=== PATIENT | female | born 1950 | race Caucasian/White ===

== ENCOUNTER 2017-10-26 05:40 | Inpatient (IN) | payer OTHER ==
[2017-10-26] VITALS (21 sets, daily range): BP systolic 112–158; BP diastolic 56–85; PULSE 74–89; RESP 14–30; Ht 162.6 cm; Wt 45.0 kg
[~2017-10-26] VITALS: Ht 162.6 cm; Wt 45.0 kg
[2017-10-26] MEDS ORDERED: TRANEXAMIC ACID 1,000 MG in SOD CHLORIDE 0.9% 100 ML IV ONE ×2 (06:00→10:00)
[2017-10-26] MEDS ORDERED: CEFAZOLIN 2 GM/50 ML (PMX) 50 ML IVPB ONE (06:00)
--- NOTE | 2017-10-26 06:43 | HPN ---
Date/Time of Note Date/Time of Note DATE: 10/26/17 TIME: 06:42 Interval H&P Admission Note Pt. seen H&P reviewed: No system changes LISA FAGAN PA-C Oct 26, 2017 06:42
[2017-10-26] MEDS ORDERED: FOLI-49 PO (06:59)
[2017-10-26] MEDS ORDERED: NAPR500T8 PO (06:59)
[2017-10-26] MEDS ORDERED: LEFL20TA18 PO (06:59)
[2017-10-26] MEDS ORDERED: LOSA50TA6 PO (06:59)
[2017-10-26] MEDS ORDERED: PRED10TA PO (06:59)
[2017-10-26] MEDS ORDERED: HYDR200T39 PO (06:59)
[2017-10-26] MEDS ORDERED: OMEP20CA16 PO (07:00)
[2017-10-26] MEDS ORDERED: CALC-143 PO (07:00)
[2017-10-26] MEDS ORDERED: KETOROLAC 30 MG INJ ONE (07:09)
[2017-10-26] MEDS ORDERED: BUPIVACAINE 0.5%/EPI (SDV) 30 ML INJ ONE (07:09)
[2017-10-26] MEDS ORDERED: POLYMYXIN/BACITRACIN 1L IRRIG ONE (07:09)
[2017-10-26] MEDS ORDERED: ROCURONIUM 50 MG INJ ONE (07:17)
[2017-10-26] MEDS ORDERED: NEOSTIGMINE 3 MG/3 ML SYRINGE ONE (07:17)
[2017-10-26] MEDS ORDERED: PROPOFOL 0 ML ONE (07:17)
[2017-10-26] MEDS ORDERED: CEFAZOLIN 1 GM INJ ONE (07:17)
[2017-10-26] MEDS ORDERED: GLYCOPYRROLATE 0.4 MG INJ ONE (07:17)
[2017-10-26] MEDS ORDERED: FENTAnyl 50 MCG/ML VIAL ONE (07:19)
[2017-10-26] MEDS ORDERED: DEXAMETHASONE 4 MG/ML 1 ML INJ ONE (07:19)
[2017-10-26] MEDS ORDERED: MIDAZOLAM 1 MG/ML 2 ML INJ ONE (07:19)
[2017-10-26] MEDS ORDERED: ONDANSETRON 4 MG INJ ONE (07:19)
[2017-10-26] MEDS ORDERED: ROPIVACAINE 0.5 % 30 ML VIAL ONE (07:20)
[2017-10-26] MEDS ORDERED: PROPOFOL 100 ML ONE (07:20)
[2017-10-26] MEDS ORDERED: CLONIDINE INJ SCH ×5 (07:30)
[2017-10-26] MEDS ORDERED: KETOROLAC INJ SCH ×5 (07:30)
[2017-10-26] MEDS ORDERED: SOD CHLORIDE 0.9% INJ SCH ×5 (07:30)
[2017-10-26] MEDS ORDERED: ROPIVACAINE 0.2% INJ SCH ×5 (07:30)
[2017-10-26] MEDS ORDERED: [UNRECOGNIZED DRUG - OTHER] INJ SCH ×5 (07:30)
[2017-10-26] MEDS ORDERED: POLYMYXIN/BACITRACIN 1L IRRIG IRR ONE (08:22)
[2017-10-26] MEDS ORDERED: LABETALOL HCL 20MG INJ IV PRN (09:30)
[2017-10-26] MEDS ORDERED: MIDAZOLAM 1 MG/ML 2 ML INJ IV PRN (09:30)
[2017-10-26] MEDS ORDERED: IPRATROPIUM (NEB) 0.5 MG/2.5 ML AMP HHN PRN (09:30)
[2017-10-26] MEDS ORDERED: FENTAnyl 50 MCG/ML VIAL IV PRN ×3 (09:30)
[2017-10-26] MEDS ORDERED: DIPHENHYDRAMINE 50 MG INJ IV PRN ×2 (09:30→10:30)
[2017-10-26] MEDS ORDERED: EPHEDrine SULFATE 50 MG/5 ML SYG IV PRN (09:30)
[2017-10-26] MEDS ORDERED: ONDANSETRON 4 MG INJ IV PRN ×2 (09:30→10:30)
[2017-10-26] MEDS ORDERED: HYDROmorphONE (0.2 MG/ML) 10ML SYG IV PRN ×3 (09:30)
[2017-10-26] MEDS ORDERED: OXYCODONE/ACETAMINOPHEN (5/325) TAB PO PRN ×2 (09:30)
[2017-10-26] MEDS ORDERED: hydrALAzine 20 MG INJ IV PRN ×2 (09:30→15:30)
[2017-10-26] MEDS ORDERED: MEPERIDINE 25 MG INJ IV PRN (09:30)
[2017-10-26] MEDS ORDERED: ALBUTEROL 0.083% (NEB) 2.5 MG/3 ML AMP HHN PRN (09:30)
[2017-10-26] MEDS ORDERED: TRIMETHOBENZAMIDE 100 MG/ML VIAL IM PRN ×2 (09:30→10:30)
--- NOTE | 2017-10-26 09:49 | SIPON ---
Date/Time of Note Date/Time of Note DATE: 10/26/17 TIME: 09:47 Operative Report Preoperative Diagnosis Right shoulder rotator cuff tear arthropathy Postoperative Diagnosis Same Operation/Procedure Performed Right total shoulder replacement using the reverse prosthesis Surgeon see signature line custody assistant Raheem Hollingsworth Second assist: LISA FAGAN PA-C Anesthesia: general Estimated blood loss: 150 - 200 ml's Transfusion Required none Specimen Bone Grafts/Implants Size 10 humeral stem, 38 mm glenosphere, 3 mm poly Complications none GLADIS STEINER Oct 26, 2017 09:49
--- NOTE | 2017-10-26 09:54 | OPR ---
Date/Time of Note Date/Time of Note DATE: 10/26/17 TIME: 09:49 Operative Report Procedure Date: Oct 26, 2017 Preoperative Diagnosis Right shoulder rotator cuff tear arthropathy Postoperative Diagnosis Same Operation/Procedure Performed Right total shoulder replacement using the reverse prosthesis Surgeon see signature line Able Seaman Dr. Raheem Hollingsworth Second Able Seaman: LISA FAGAN PA-C Anesthesia Type: general Estimated Blood Loss: 150 - 200 ml's Transfusion none Specimen Bone Grafts/Implants depuy size 10 stem and 38 mm glenoid Tubes/Drains None Complications none Pt Condition Post Procedure: stable Disposition: PACU Indications The patient is a 66-year-old female with right shoulder rotator cuff tear that is irrepairable Procedure Description Patient was placed on the operating room table in a beachchair position. Right shoulder was prepped and draped in usual manner. An anterior approach to the right shoulder was made. The deltopectoral interval was developed in a blunt fashion. The cephalic vein was protected and retracted medially with the pectoralis major. A biceps tenodesis was done using #2 Ethibond suture. The shoulder joint was opened 1 cm medial to the biceps tendon. There was extensive tearing of the rotator cuff involving the subscapularis, supraspinatus and infraspinatus. There was severe atrophy of the rotator cuff muscles. There was complete loss of cartilage in the shoulder. The shoulder was prepared for a reverse prosthesis from the [place] shoulder system. The shoulder was prepared for a size 10 humeral stem which was placed in 20-25 of retroversion. The glenoid was prepared by placing the glenoid baseplate in the inferior portion of the glenoid and then placing a 38 mm glenosphere. A trial reduction was done using the size 10 stem with a 3 mm polyethylene. This resulted in a stable shoulder with good range of motion. The shoulder was then thoroughly irrigated. Trials were removed. Final implants were placed including a size 10 stem and 38 mm +3 polyethylene. This resulted in a stable shoulder with good range of motion. The shoulder was injected with Marcaine and Toradol and closed in layers using #1 Vicryl for arthrotomy and fascia 2-0 Vicryl for subcutaneous tissue and 3-0 Monocryl for the skin. Patient was transferred to the recovery room in stable condition. GLADIS STEINER Oct 26, 2017 09:54
[2017-10-26] MEDS ORDERED: morphine 2 MG INJ IV PRN (10:30)
[2017-10-26] MEDS ORDERED: MAGNESIUM HYDROXIDE 30ML CUP PO PRN (10:30)
[2017-10-26] MEDS ORDERED: ZOLPIDEM 5 MG TAB PO PRN (10:30)
[2017-10-26] MEDS ORDERED: NA PHOSPHATE/BIPHOS 133 ML ENEMA PR PRN (10:30)
[2017-10-26] MEDS ORDERED: LOPERAMIDE 2 MG CAP PO PRN (10:30)
[2017-10-26] MEDS ORDERED: BISACODYL 10 MG SUPP PR PRN (10:30)
[2017-10-26] MEDS ORDERED: NACL 0.9% 3 ML SYG IV SCH (10:30)
[2017-10-26] MEDS ORDERED: HYDROCODONE/APAP (5/325) TAB PO PRN ×2 (10:30)
[2017-10-26] MEDS ORDERED: ASPIRIN (EC) 325 MG TAB PO ONE (10:30)
[2017-10-26] MEDS ORDERED: BETHANECHOL 25 MG TAB PO PRN (10:30)
--- NOTE | 2017-10-26 10:43 | PDOCDIS ---
Discharge Instructions DIAGNOSIS Discharge Diagnosis Status post right reverse total shoulder arthroplasty. CONDITION Patient Condition: Good HOME CARE INSTRUCTIONS: Diet Instructions: Regular ACTIVITY: Activity Restrictions: Slowly Increase Activity Rest between Activity Avoid heavy lifting No Sexual Activity Do not Drive Do not operate Machinery Do not operate Power Tool Avoid Heavy Housework No Weight Bearing (Remain in sling. Pendulum exercises okay.) Bathing Restrictions: Shower (Keep Mepilex dressing on while showering.) FOLLOW UP/APPOINTMENTS Follow-up Plan Follow-up for postoperative visit provided to you at your preoperative exam date. LISA FAGAN PA-C Oct 26, 2017 10:43
[2017-10-26 11:15] LABS: BASOPHILS % 0.6 % (0.0-2.0); EOSINOPHILS # 0.2 10^3/ul (0.0-0.5); EOSINOPHILS % 2.4 % (0.0-7.0); HEMATOCRIT 29.3 % (37.0-47.0); LYMPHOCYTES # 1.7 10^3/ul (0.8-2.9); LYMPHOCYTES % 26.9 % (15.0-51.0); MEAN CORPUSCULAR HEMOGLOBIN 27.2 pg (29.0-33.0); MEAN CORPUSCULAR HGB CONC 31.1 g/dl (32.0-37.0); MEAN CORPUSCULAR VOLUME 87.5 fl (82.0-101.0); MEAN PLATELET VOLUME 9.1 fl (7.4-10.4); MONOCYTE # 0.4 10^3/ul (0.3-0.9); MONOCYTES % 6.8 % (0.0-11.0); NEUTROPHILS % 62.2 % (39.0-77.0); PLATELET COUNT 272 10^3/UL (140-415); RED BLOOD COUNT 3.35 10^6/ul (4.20-5.40); RED CELL DISTRIBUTION WIDTH 18.1 % (11.5-14.5); WHITE BLOOD COUNT 6.4 10^3/ul (4.8-10.8)
[2017-10-26 11:17] LABS: HOLD TRANSMISSIONS 1
[2017-10-26 11:21] LABS: HEMOGLOBIN 9.1 g/dl (12.0-16.0)
--- NOTE | 2017-10-26 15:24 | CONS ---
Date/Time of Note Date/Time of Note DATE: 10/26/17 TIME: 15:19 Assessment/Plan Assessment/Plan Chief Complaint/Hosp Course Impression and plan 1. Right shoulder arthritis with rotator cuff tear arthropathy. Patient is status post right total shoulder replacement with reverse prosthesis. Continue with analgesics. Physical therapy per surgeon. 2. Essential hypertension. Will continue antihypertensives and adjust as needed. 3. History of arthritis. Continue with analgesics 4. Anemia. Will follow up on iron panel. Remained stable at present. consultation process time is greater than 40 minutes Discussed plan of care with Dr. Baker Problems: Consultation Date/Type/Reason Admit Date/Time Oct 26, 2017 at 05:40 Reason for Consultation Medical management Hx of Present Illness This is 66-year-old female with past medical history of hypertension, arthritis , who was brought to [facility] for elective surgery for right total shoulder replacement secondary to arthritis. Patient did have history of right shoulder rotator cuff tear and arthropathy. As such was brought to bypass during hospital for surgical intervention. She did tolerated well. Overall vital signs do appear stable however is noted with some hypertension. She is anemic microcytic hypochromic. Basic metabolic panel is pending at this time. She remains afebrile at present. Denies any pain. We will evaluate her for the aformentiond issues. Past Medical History Medical/surgical history 1. Bilateral hip and knee replacement 2. Arthritis 3. Hypertension Social History Alcohol Use: none Smoking Status: Never smoker Drug Use: none Exam/Review of Systems Vital Signs Vitals Vital Signs Date Time Temp Pulse Resp B/P Pulse Ox O2 Delivery O2 Flow Rate FiO2 10/26/17 13:15 75 17 149/77 98 Room Air 10/26/17 12:21 98.1 Exam Constitutional: alert, oriented Psych: nl mood/affect Head: normocephalic Eyes: nl conjunctiva Neck: supple Respiratory: clear to auscultation, normal air movement Cardiovascular: nl pulses, regular rate and rhythm Gastrointestinal: soft Musculoskeletal: other (Status post surgical intervention on right shoulder with area clean dry and intact) Neurological: RETAIL CASHIER II-XII intact, nl mental status, nl speech Skin: nl turgor Results Result Diagram: 10/26/17 1058 Results 24 hrs Laboratory Tests Test 10/26/17 10:58 White Blood Count 6.4 Red Blood Count 3.35 L Hemoglobin 9.1 L Hematocrit 29.3 L Mean Corpuscular Volume 87.5 Mean Corpuscular Hemoglobin 27.2 L Mean Corpuscular Hemoglobin Concent 31.1 L Red Cell Distribution Width 18.1 H Platelet Count 272 Mean Platelet Volume 9.1 Neutrophils % 62.2 Lymphocytes % 26.9 Monocytes % 6.8 Eosinophils % 2.4 Basophils % 0.6 Nucleated Red Blood Cells % 0.0 Neutrophils # 4.0 Lymphocytes # 1.7 Monocytes # 0.4 Eosinophils # 0.2 Basophils # 0.0 Nucleated Red Blood Cells # 0.0 CBC Results Faxed/Phoned 1 *H Medications Medications Current Medications Cefazolin Sodium (Ancef 1 Gm/50 ml (Pmx)) 50 ml @ 100 mls/hr Q8H IVPB ; Start 10/26/17 at 10:30; Stop 10/27/17 at 02:59 Senna/Docusate Sodium (Senokot-S) 1 tab BID PO ; Start 10/26/17 at 21:00 Simethicone (Mylicon) 80 mg TID PRN PO DISTENSION/GAS/BLOATING; Start 10/26/17 at 10:30 Magnesium Hydroxide (Milk Of Mag) 30 ml BID PRN PO CONSTIPATION; Start at 10:30 Magnesium Hydroxide (Milk Of Mag) 30 ml HS PO ; Start 10/28/17 at 21:00 Bisacodyl (Dulcolax Supp) 10 mg DAILY PRN [place] CONSTIPATION; Start 10/26/17 at 10 :30 Sodium Biphosphate/ Sodium Phosphate (Fleet Enema) 133 ml DAILY PRN [place] CONSTIPATION; Start 10/26/17 at 10:30 Docusate Sodium/ Ferrous Fumarate (Brett-Sequels) 1 tab BID PO ; Start 10/26/17 at 21:00 Loperamide HCl (Imodium Cap) 2 mg Q6H PRN PO DIARRHEA; Start 10/26/17 at 10:30 Gabapentin (Neurontin) 100 mg BID PO ; Start 10/26/17 at 21:00 Acetaminophen/ Hydrocodone Bitart ([place] (5/325)) 1 tab Q4H PRN PO PAIN LEVEL 1 -5; Start 10/26/17 at 10:30 Acetaminophen/ Hydrocodone Bitart ([place] (5/325)) 2 tab Q4H PRN PO PAIN LEVEL 6 -10; Start 10/26/17 at 10:30 Morphine Sulfate (morphine) 2 mg Q2H PRN IV PAIN LEVEL 1-5; Start 10/26/17 at 10:30 Morphine Sulfate (morphine) 4 mg Q4H PRN IV PAIN LEVEL 6-10; Start 10/26/17 at 10:30 Ketorolac Tromethamine (Toradol) 15 mg Q6H PRN IV PAIN; Start 10/26/17 at 10:30 ; Stop 10/29/17 at 10:29 Ondansetron HCl (Zofran Inj) 4 mg Q6H PRN IV NAUSEA AND/OR VOMITING; Start 10/26/17 at 10:30 Trimethobenzamide HCl (Tigan) 200 mg Q6H PRN IM NAUSEA AND/OR VOMITING; Start 10/26/17 at 10:30 Diphenhydramine HCl (Benadryl) 25 mg Q6H PRN IV PRURITUS; Start 10/26/17 at 10: 30 Aspirin (Ecotrin) 325 mg DAILY PO ; Start 10/27/17 at 09:00 Hydralazine HCl (Apresoline) 10 mg Q4H PRN IV sbp>160; Start 10/26/17 at 15:30 ; Status JONASV BOUCHRA BRENNER Oct 26, 2017 15:23
[2017-10-26] MEDS: CEFAZOLIN 1 GM/50 ML (PMX) 50 ML IVPB SCH ×2 (15:42→17:03)
[2017-10-26 16:55] LABS: IRON 15 ug/dl (35-150)
[2017-10-26 17:05] LABS: TOTAL IRON BINDING CAPACITY 341 ug/dl (241-421)
[2017-10-26] MEDS ORDERED: GABAPENTIN 300 MG CAP PO SCH (21:00)
[2017-10-26] MEDS: FERROUS FUMARATE (SR) TAB PO SCH (21:15)
[2017-10-26] MEDS: SENNA/DOCUSATE NA (8.6MG/50MG) TAB PO SCH (21:15)
[2017-10-26] MEDS: GABAPENTIN 100 MG CAP PO SCH (23:22)
[2017-10-27] MEDS: morphine 4 MG/ML VIAL IV PRN ×2 (00:55→06:21)
[2017-10-27] MEDS: CEFAZOLIN 1 GM/50 ML (PMX) 50 ML IVPB SCH (02:34)
[2017-10-27 05:23] LABS: BASOPHILS % 0.1 % (0.0-2.0); HEMATOCRIT 29.7 % (37.0-47.0); HEMOGLOBIN 9.3 g/dl (12.0-16.0); LYMPHOCYTES # 0.8 10^3/ul (0.8-2.9); LYMPHOCYTES % 8.2 % (15.0-51.0); MEAN CORPUSCULAR HEMOGLOBIN 26.9 pg (29.0-33.0); MEAN CORPUSCULAR HGB CONC 31.3 g/dl (32.0-37.0); MEAN CORPUSCULAR VOLUME 85.8 fl (82.0-101.0); MEAN PLATELET VOLUME 9.2 fl (7.4-10.4); MONOCYTE # 1.2 10^3/ul (0.3-0.9); MONOCYTES % 11.5 % (0.0-11.0); NEUTROPHIL # 8.2 10^3/ul (1.6-7.5); NEUTROPHILS % 79.7 % (39.0-77.0); PLATELET COUNT 293 10^3/UL (140-415); RED BLOOD COUNT 3.46 10^6/ul (4.20-5.40); RED CELL DISTRIBUTION WIDTH 17.9 % (11.5-14.5); WHITE BLOOD COUNT 10.3 10^3/ul (4.8-10.8)
[2017-10-27 05:50] LABS: ALBUMIN 2.8 g/dl (3.3-4.9); BILIRUBIN,INDIRECT 0.2 mg/dl (0-1.1); BILIRUBIN,TOTAL 0.2 mg/dl (0.2-1.3); CALCIUM 8.9 mg/dl (8.4-10.2); CREATININE 0.73 mg/dl (0.44-1.00); POTASSIUM 3.7 mmol/L (3.5-5.1); TOTAL PROTEIN 5.6 g/dl (6.1-8.1)
[2017-10-27 05:59] LABS: T3 UPTAKE 39.6 % (23.5-40.5)
[2017-10-27 07:51] VITALS: BP 129/67; RESP 20
--- NOTE | 2017-10-27 08:02 | PN ---
Date/Time of Note Date/Time of Note DATE: 10/27/17 TIME: 08:00 Assessment/Plan VTE Prophylaxis VTE Prophylaxis Intervention: ambulation, SCD's, other (Aspirin 325 mg) Lines/Catheters IV Catheter Type (from Nrsg): Peripheral IV [place] in Place (from Nrsg): No Assessment/Plan Assessment/Plan -Pain Meds as needed -ASA for DVT Prophylaxis x 4 weeks outpatient discussed. -Continue monitoring as outpatient on discharge -Follow-up at scheduled postop outpatient appointment or sooner if there is any issue. -Patient Stable -Discharge to Home with home health Subjective 24 Hr Interval Summary 66-year-old female postop day 1 status post left reverse total shoulder arthroplasty. No acute events overnight. Patient is having significant pain overnight and was she was provided morphine which helped. Currently experienced moderate to severe pain. Remains in arm sling. Constitutional: no complaints Exam/Review of Systems Vital Signs Vitals Vital Signs Date Time Temp Pulse Resp B/P Pulse Ox O2 Delivery O2 Flow Rate FiO2 10/27/17 07:51 98.0 102 20 129/67 95 10/26/17 13:45 Room Air Intake and Output 10/26/17 10/26/17 10/27/17 15:00 23:00 07:00 Intake Total 2200 ml 350 ml 650 ml Output Total 50 ml Balance 2150 ml 350 ml 650 ml Exam Free Text/Dictation * Dressing is clean dry and intact. No complications to surgical site. * Arm resting in arm sling. Patient is able to move the right elbow and wrist. Constitutional: alert, oriented, well developed Results Result Diagram: 10/27/17 0501 10/27/17 0501 LISA FAGAN PA-C Oct 27, 2017 08:02
[2017-10-27 08:07] LABS: CHOL/HDL RATIO 2.6 RATIO
[2017-10-27] MEDS: FERROUS FUMARATE (SR) TAB PO SCH (08:18)
[2017-10-27] MEDS: SENNA/DOCUSATE NA (8.6MG/50MG) TAB PO SCH ×2 (08:18→20:02)
[2017-10-27] MEDS: GABAPENTIN 100 MG CAP PO SCH ×2 (08:18→20:03)
[2017-10-27] MEDS ORDERED: OXYCODONE/ACETAMINOPHEN (10/325) TAB PO PRN (08:30)
[2017-10-27] MEDS ORDERED: ASPIRIN (EC) 325 MG TAB PO SCH (09:00)
[2017-10-27] MEDS ORDERED: FERR1TAB14 PO (11:44)
--- NOTE | 2017-10-27 11:45 | PN ---
Date/Time of Note Date/Time of Note DATE: 10/27/17 TIME: 11:40 Assessment/Plan VTE Prophylaxis VTE Prophylaxis Intervention: ambulation Lines/Catheters IV Catheter Type (from [facility] [place]): [place] Lock Urinary Cath still in place: No Assessment/Plan Chief Complaint/Hosp Course Impression and plan 1. Right shoulder arthritis with rotator cuff tear arthropathy. Patient is status post right total shoulder replacement with reverse prosthesis. Continue with analgesics. stable 2. Essential hypertension. Will continue antihypertensives and adjust as needed. 3. History of arthritis. Continue with analgesics 4. Anemia. start on iron supplement dispo/plan. overall stable. d/c planning Discussed plan of care with Dr. Baker Problems: Subjective 24 Hr Interval Summary Free Text/Dictation comfortable at present. no s/s of distress Exam/Review of Systems Vital Signs Vitals Vital Signs Date Time Temp Pulse Resp B/P Pulse Ox O2 Delivery O2 Flow Rate FiO2 10/27/17 07:51 98.0 102 20 129/67 95 10/26/17 13:45 Room Air Intake and Output 10/26/17 10/26/17 10/27/17 15:00 23:00 07:00 Intake Total 2200 ml 350 ml 650 ml Output Total 50 ml Balance 2150 ml 350 ml 650 ml Exam Constitutional: alert, oriented Psych: nl mood/affect Head: normocephalic Eyes: nl conjunctiva Neck: supple Respiratory: clear to auscultation, normal air movement Cardiovascular: nl pulses, regular rate and rhythm Gastrointestinal: soft Musculoskeletal: other (Status post surgical intervention on right shoulder with area clean dry and intact) Neurological: OFFICE MACHINES TEACHER II-XII intact, nl mental status, nl speech Skin: nl turgor Results Result Diagram: 10/27/17 0501 10/27/17 0501 Results 24 hrs Laboratory Tests Test 10/26/17 16:10 10/27/17 05:01 Hemoglobin A1c 5.5 Iron Level 15 L Total Iron Binding Capacity 341 Percent Iron Saturation 4 L White Blood Count 10.3 # Red Blood Count 3.46 L Hemoglobin 9.3 L Hematocrit 29.7 L Mean Corpuscular Volume 85.8 Mean Corpuscular Hemoglobin 26.9 L Mean Corpuscular Hemoglobin Concent 31.3 L Red Cell Distribution Width 17.9 H Platelet Count 293 Mean Platelet Volume 9.2 Neutrophils % 79.7 H Lymphocytes % 8.2 L Monocytes % 11.5 H Eosinophils % 0.0 Basophils % 0.1 Nucleated Red Blood Cells % 0.0 Neutrophils # 8.2 H Lymphocytes # 0.8 Monocytes # 1.2 H Eosinophils # 0.0 Basophils # 0.0 Nucleated Red Blood Cells # 0.0 Sodium Level 139 Potassium Level 3.7 Chloride Level 105 Carbon Dioxide Level 28 Anion Gap 10 Blood Urea Nitrogen 11 Creatinine 0.73 Glucose Level 99 Calcium Level 8.9 Total Bilirubin 0.2 Direct Bilirubin 0.00 Indirect Bilirubin 0.2 Aspartate Amino Transf (AST/SGOT) 31 Alanine Aminotransferase (ALT/SGPT) 30 Alkaline Phosphatase 55 Total Protein 5.6 L Albumin 2.8 L Globulin 2.80 Albumin/Globulin Ratio 1.00 Triglycerides Level 120 Cholesterol Level 123 LDL Cholesterol, Calculated 52 HDL Cholesterol 47 Cholesterol/HDL Ratio 2.6 Free Thyroxine Index 2.30 Thyroxine (T4) 5.8 Triiodothyronine (T3) Uptake 39.6 Medications Medications Current Medications Senna/Docusate Sodium (Senokot-S) 1 tab BID PO Last administered on 10/27/17 08:18; Admin Dose 1 TAB; Start 10/26/17 at 21:00 Simethicone (Mylicon) 80 mg TID PRN PO DISTENSION/GAS/BLOATING; Start 10/26/17 at 10:30 Magnesium Hydroxide (Milk Of Mag) 30 ml BID PRN PO CONSTIPATION; Start at 10:30 Magnesium Hydroxide (Milk Of Mag) 30 ml HS PO ; Start 10/28/17 at 21:00 Bisacodyl (Dulcolax Supp) 10 mg DAILY PRN [place] CONSTIPATION; Start 10/26/17 at 10 :30 Sodium Biphosphate/ Sodium Phosphate (Fleet Enema) 133 ml DAILY PRN [place] CONSTIPATION; Start 10/26/17 at 10:30 Docusate Sodium/ Ferrous Fumarate (Brett-Sequels) 1 tab BID PO Last administered on 10/27/17 08:18; Admin Dose 1 TAB; Start 10/26/17 at 21:00 Loperamide HCl (Imodium Cap) 2 mg Q6H PRN PO DIARRHEA; Start 10/26/17 at 10:30 Acetaminophen/ Hydrocodone Bitart ([place] (5/325)) 1 tab Q4H PRN PO PAIN LEVEL 1 -5 Last administered on 10/26/17 23:22; Admin Dose 1 TAB; Start 10/26/17 at 10: 30 Acetaminophen/ Hydrocodone Bitart ([place] (5/325)) 2 tab Q4H PRN PO PAIN LEVEL 6 -10 Last administered on 10/27/17 11:10; Admin Dose 2 TAB; Start 10/26/17 at 10 :30 Morphine Sulfate (morphine) 2 mg Q2H PRN IV PAIN LEVEL 1-5; Start 10/26/17 at 10:30 Morphine Sulfate (morphine) 4 mg Q4H PRN IV PAIN LEVEL 6-10 Last administered on 10/27/17 06:21; Admin Dose 4 MG; Start 10/26/17 at 10:30 Ketorolac Tromethamine (Toradol) 15 mg Q6H PRN IV PAIN; Start 10/26/17 at 10:30 ; Stop 10/29/17 at 10:29 Ondansetron HCl (Zofran Inj) 4 mg Q6H PRN IV NAUSEA AND/OR VOMITING Last administered on 10/27/17 02:42; Admin Dose 4 MG; Start 10/26/17 at 10:30 Trimethobenzamide HCl (Tigan) 200 mg Q6H PRN IM NAUSEA AND/OR VOMITING; Start 10/26/17 at 10:30 Diphenhydramine HCl (Benadryl) 25 mg Q6H PRN IV PRURITUS; Start 10/26/17 at 10: 30 Aspirin (Ecotrin) 325 mg DAILY PO Last administered on 10/27/17 08:18; Admin Dose 325 MG; Start 10/27/17 at 09:00 Hydralazine HCl (Apresoline) 10 mg Q4H PRN IV sbp>160 Last administered on 10/27 02:28; Admin Dose 10 MG; Start 10/26/17 at 15:30 Gabapentin (Neurontin) 100 mg BID PO Last administered on 10/27/17 08:18; Admin Dose 100 MG; Start 10/26/17 at 21:30 Oxycodone/ Acetaminophen (Endocet (10/ 325)) 1 tab Q4H PRN PO PAIN; Start 10/27 at 08:30 BOUCHRA BRENNER Oct 27, 2017 11:45
[2017-10-27] MEDS: KETOROLAC 30 MG INJ IV PRN ×2 (12:24→20:03)
[2017-10-27] MEDS ORDERED: OXYCODONE/ACETAMINOPHEN (5/325) TAB PO PRN ×2 (12:30)
[2017-10-27] MEDS: FERROUS SULFATE (EC) 325 MG TAB PO SCH ×2 (13:10→20:02)
[2017-10-27 19:57] VITALS: BP 143/71; RESP 19
[2017-10-27] MEDS ORDERED: FERROUS FUMARATE (SR) TAB PO SCH (21:00)
[2017-10-27] MEDS ORDERED: HYDROXYCHLOROQUINE 200 MG TAB PO SCH (21:00)
--- NOTE | 2017-10-28 08:27 | DS ---
Date/Time of Note Date/Time of Note DATE: 10/28/17 TIME: 08:25 Discharge Summary Admission/Discharge Info Admit Date/Time Oct 26, 2017 at 05:40 Discharge Date/Time Oct 27, 2017 at 20:31 Discharge Diagnosis Status post right reverse total shoulder arthroplasty. Patient Condition: Good Hospital Course On the day of admission, the patient underwent right total shoulder arthroplasty with reverse prosthesis. Intraoperative complications: None Postoperative complications: None The patient was given prophylactic antibiotics and anticoagulants. On the day of surgery and first postoperative day patient was started on gait training and was taught usual restrictions following shoulder replacement On postoperative day 1 dressing was clean dry and intact. No complications were observed. On the day of discharge, the wound was clean and healing well; there was no sign of infection. Wound care instructions were discussed with the patient. Discharge Temperature: 98.3 Discharge White Blood Cell Count: 10.3 Discharge Hemoglobin: 9.3 The patient was discharged to long term facility. Arrangements were made for visiting nurses and home health/physical therapy. The patient will be seen in office at scheduled postoperative evaluation date given on their preoperative exam. Should patient complain of any problems prior to scheduled postoperative evaluation date, they may call into outpatient clinic to determine if they need to be scheduled at sooner appointment to be seen immediately if needed. Discharge medications: As per medication reconciliation form Diet: Same as preadmission diet. This is Michael Vizcaino PA-C dictating discharge summary for Dr. Magallon. Home Meds Active Scripts Ferrous Fumarate/Ascorbic Acid (Brett-Sequels 65-25 mg Caplet) 1 Each Tablet.er , 1 TAB PO BID, #60 TAB Prov:BOUCHRA BRENNER 10/27/17 Reported Medications Calcium Citrate/Vitamin D (Citracal-Vitamin D 200 MG-250) 1 Each Tablet, 1 EACH PO BID, TAB 10/26/17 Omeprazole* (Omeprazole*) 20 Mg Capsule., 20 MG PO DAILY, #30 CAP 10/26/17 Prednisone* (Prednisone*) 10 Mg Tab, 10 MG PO DAILY, TAB 10/26/17 Hydroxychloroquine Sulfate* (Hydroxychloroquine Sulfate*) 200 Mg Tablet, 200 MG PO BID, TAB 10/26/17 Leflunomide* (Leflunomide*) 20 Mg Tablet, 20 MG PO DAILY, #30 TAB 10/26/17 Folic Acid* (Folic Acid*) 1 Mg Tablet, 1 MG PO DAILY, TAB 10/26/17 Naproxen* (Naproxen EC*) 500 Mg Tablet.dr, 500 MG PO BID Y for PAIN, TAB 10/26/17 Losartan Potassium* (Losartan Potassium*) 50 Mg Tablet, 50 MG PO DAILY, TAB 10/26/17 Follow-up Plan Follow-up for postoperative visit provided to you at your preoperative exam date. Primary Care Provider MD GRACIA Sanchez KERBY PA-C Oct 28, 2017 08:27
[2017-10-28] MEDS ORDERED: LEFLUNOMIDE 10 MG TAB PO SCH (09:00)
[2017-10-28] MEDS ORDERED: predniSONE 10 MG TAB PO SCH (09:00)
[2017-10-28] MEDS ORDERED: FOLIC ACID 1 MG TAB PO SCH (09:00)
[2017-10-28] MEDS ORDERED: LOSARTAN 50 MG TAB PO SCH (09:00)
[2017-10-28] MEDS ORDERED: MAGNESIUM HYDROXIDE 30ML CUP PO SCH (21:00)
== END 2017-10-27 20:31 | DRG 483 ==
LOC: REC 05:40 → MS1 11:23
PROVIDERS: ADMIT Orthopaedic Surgery; ATTEND Orthopaedic Surgery
PROC: 0RRJ00Z Replacement of Right Shoulder Joint with Reverse Ball and Socket Synthetic Substitute, Open Approach (ICD-10-PCS; principal; 2017-10-26 07:30)
DX: M19.011 Primary osteoarthritis, right shoulder (principal); I10 Essential (primary) hypertension; M75.101 Unspecified rotator cuff tear or rupture of right shoulder, not specified as traumatic; D64.9 Anemia, unspecified; Z96.643 Presence of artificial hip joint, bilateral; Z96.653 Presence of artificial knee joint, bilateral
CPT/HCPCS: 80053; 80061; 83036; 83540; 84436; 84479; 85025; 86850; 86900; 86901; 87081; 88304; 88311; 97116; 97161; 97165; 97530; 97535; C1776; J0171; J0360; J0690; J0735; J1100; J1885; J2175; J2250; J2270; J2405; J2710; J2795; J3010